=== PATIENT | female | born 1970 ===

== ENCOUNTER 2017-06-15 11:32 | Emergency (ER) | payer OTHER ==
[2017-06-15 11:41] VITALS: BP 96/61; PULSE 78; RESP 16; TEMP 98.7; O2SAT 99
[2017-06-15 12:21] LABS: RBC URINE 25 /hpf (0-3); URINE BILIRUBIN NEGATIVE (NEGATIVE); URINE BLOOD 1+ (NEGATIVE); URINE COLOR Yellow (YELLOW); URINE GLUCOSE (UA) NORMAL (Normal); URINE KETONE NEGATIVE (NEGATIVE); URINE LEUKOCYTE ESTERASE TRACE Leu/uL (Negative); URINE PROTEIN NEGATIVE (NEGATIVE); URINE UROBILINOGEN NORMAL mg/dL (0.2-1.0); WBC URINE 3 /hpf (0-5)
--- NOTE | 2017-06-15 13:00 | C.PDOC ---
History Of Present Illness 47 yr old female presents to the ER with complaints of dysuria for the past 3 days, which is associated with hematuria and urinary frequency. Patient states today she started experiencing intermittent low back pain which prompted visit. Denies fever, chills, nausea, vomiting, abdominal pain, diarrhea, weakness or numbness. Time Seen by Provider: 06/15/17 11:52 Chief Complaint (Nursing): Female Genitourinary History Per: Patient History/Exam Limitations: no limitations Onset/Duration Of Symptoms: Days (3) Current Symptoms Are (Timing): Still Present Past Medical History Reviewed: Historical Data, Nursing Documentation, Vital Signs Vital Signs: Last Vital Signs Temp 98.7 F 06/15/17 11:37 Pulse 78 06/15/17 11:37 Resp 16 06/15/17 11:37 BP 96/61 L 06/15/17 11:37 Pulse Ox 99 06/15/17 13:17 Surgical History: Back Surgery - [facility] Procedures INJECT/INFUSE NEC (03/22/14) Family History: States: Hypertension - Social History Hx Tobacco Use: Yes Hx Alcohol Use: Yes Hx Substance Use: No - Immunization History Hx Tetanus Toxoid Vaccination: No Hx Influenza Vaccination: No Hx Pneumococcal Vaccination: No Review Of Systems Except As Marked, All Systems Reviewed And Found Negative. Constitutional: Negative for: Fever, Chills Gastrointestinal: Negative for: Nausea, Vomiting, Abdominal Pain, Diarrhea Genitourinary: Positive for: Dysuria, Frequency (Urinary), Hematuria Musculoskeletal: Positive for: Back Pain (Low ) Neurological: Negative for: Weakness, Numbness Physical Exam - Physical Exam Appears: Non-toxic, No Acute Distress Skin: Normal Color, Warm, Dry, No Rash Head: Atraumatic, Normacephalic Eye(s): bilateral: Normal Inspection, PERRL, EOMI Oral Mucosa: Moist Neck: Normal, Normal ROM, Supple Chest: Symmetrical, No Tenderness Cardiovascular: Rhythm Regular, No Murmur Respiratory: Normal Breath Sounds, No Rales, No Rhonchi, No Stridor, No Wheezing Gastrointestinal/Abdominal: Normal Exam, Soft, No Tenderness, No Guarding, No Rebound Back: Normal Inspection, No CVA Tenderness Extremity: Normal ROM, No Swelling Neurological/Psych: Oriented x3, Normal Speech, Normal Motor ED Course And Treatment O2 Sat by Pulse Oximetry: 99 (RA) Pulse Ox Interpretation: Normal Medical Decision Making Medical Decision Making: PLAN: * HCG * Urinalysis * Cipro PO * Pyridium PO UA is negative but will treat based on symptoms. Disposition - Disposition Referrals: Terry Shaw DPM [[facility]] - Disposition: HOME/ ROUTINE Disposition Time: 12:57 Condition: GOOD Additional Instructions: Follow up with the medical doctor within 1-2 days. Return if worsened. Prescriptions: Ciprofloxacin [Cipro] 1 tab PO BID #14 tab Ibuprofen [Motrin] 1 tab PO TID PRN #30 tab PRN Reason: Pain Phenazopyridine HCl [Pyridium] 200 mg PO TID #10 tablet Instructions: Urinary Tract Infection in Women (ED) Forms: [facility] (Kazakh), Work Excuse - Clinical Impression Clinical Impression: UTI (urinary tract infection), Dysuria - PA / LAST SCOURER / Resident Statement MD/DO has reviewed & agrees with the documentation as recorded. - Scribe Statement The provider has reviewed the documentation as recorded by the Scribloi Reina All medical record entries made by the Sadafibloi were at my direction and personally dictated by me. I have reviewed the chart and agree that the record accurately reflects my personal performance of the history, physical exam, medical decision making, and the department course for this patient. I have also personally directed, reviewed, and agree with the discharge instructions and disposition.
== END 2017-06-15 13:11 | disposition home or self-care (01) ==
LOC: C.ER 11:32
DX: N39.0 Urinary tract infection, site not specified (principal); R30.0 Dysuria

== ENCOUNTER 2017-06-20 19:24 | Emergency (ER) | payer OTHER ==
[2017-06-20 19:47] VITALS: TEMP 98.7
[2017-06-20] MEDS ORDERED: Lidocaine 5% Patch TD STA (20:04)
[2017-06-20 20:13] LABS: RBC URINE 11 /hpf (0-3); URINE BILIRUBIN NEGATIVE (NEGATIVE); URINE BLOOD 1+ (NEGATIVE); URINE COLOR Yellow (YELLOW); URINE GLUCOSE (UA) NORMAL (Normal); URINE KETONE NEGATIVE (NEGATIVE); URINE LEUKOCYTE ESTERASE NEG Leu/uL (Negative); URINE PROTEIN NEGATIVE (NEGATIVE); URINE UROBILINOGEN NORMAL mg/dL (0.2-1.0); WBC URINE 1 /hpf (0-5)
[2017-06-20] MEDS ORDERED: Lidocaine 5% Patch TD ONE (20:20)
--- NOTE | 2017-06-20 20:36 | C.PDOC ---
History Of Present Illness 47 year old female presents to the ED with complaints of low back pain worse on the left side which radiates down the buttocks, thigh and down the leg. She states she has been having pain for few days, worsened yesterday at work when lifting heavy box. She states she was seen recently in the ED for UTI which she was given antibiotics and reports dysuria has resolved. Denies fever, numbness, weakness, incontinence. Time Seen by Provider: 06/20/17 19:59 Chief Complaint (Nursing): Back Pain History Per: Patient History/Exam Limitations: no limitations Onset/Duration Of Symptoms: Days Current Symptoms Are (Timing): Still Present Quality Of Discomfort: "Pain" Severity: Mild Associated Symptoms: denies: Incontinence, New Weakness, New Numbness Additional History Per: Patient Past Medical History Reviewed: Historical Data, Nursing Documentation, Vital Signs Vital Signs: Last Vital Signs Temp 98.7 F 06/20/17 19:44 Pulse 69 06/20/17 19:44 Resp 22 06/20/17 19:44 BP 98/71 L 06/20/17 19:44 Pulse Ox 97 06/20/17 20:41 Surgical History: Back Surgery - [facility] Procedures INJECT/INFUSE NEC (03/22/14) Family History: States: Unknown Family Hx, Hypertension - Social History Hx Tobacco Use: Yes Hx Alcohol Use: Yes Hx Substance Use: No - Immunization History Hx Tetanus Toxoid Vaccination: No Hx Influenza Vaccination: No Hx Pneumococcal Vaccination: No Review Of Systems Constitutional: Negative for: Fever Genitourinary: Negative for: Incontinence (Bowel or urine) Musculoskeletal: Positive for: Back Pain (Lower, worse left side), Leg Pain ( Buttocks, left thigh and leg. Radiation.) Neurological: Negative for: Weakness, Numbness Physical Exam - Physical Exam Appears: Non-toxic, No Acute Distress Skin: Warm, Dry, No Rash Head: Atraumatic, Normacephalic Eye(s): bilateral: Normal Inspection Neck: Normal ROM Chest: Symmetrical Cardiovascular: Rhythm Regular, No Murmur Respiratory: Normal Breath Sounds, No Rales, No Rhonchi, No Wheezing Gastrointestinal/Abdominal: Bowel Sounds (Active), Soft, No Tenderness, No Guarding Back: Normal Inspection (no erythema, no swelling), No CVA Tenderness, No Decreased ROM, Paraspinal Tenderness (lumbosacral greater on the left side) Extremity: Bilateral: Atraumatic, Normal Color And Temperature, Normal ROM Neurological/Psych: Oriented x3, Normal Speech Gait: Steady ED Course And Treatment O2 Sat by Pulse Oximetry: 97 (RA) Pulse Ox Interpretation: Normal Medical Decision Making Medical Decision Making: Impression: low back pain Plan: * UA * Toradol * Lidoderm * Valium Progress: UA shows trace blood, no WBCs or acute changes from last visit On re-eval patient reports pain is improving. She is asking for work note for light duty. She feels comfortable with discharge. She is ambulating without signs of discomfort. Disposition Counseled Patient/Family Regarding: Diagnosis, Need For Followup, Rx Given - Disposition Referrals: Michelle Shaw MD [Non-Staff] - Disposition: HOME/ ROUTINE Disposition Time: 20:33 Condition: IMPROVED Additional Instructions: Please take Motrin as needed for pain every 6 hours, with food to not upset stomach. Take Flexeril which is muscle relaxant, every 8 hours as needed; caution can make you drowsy. Follow up with orthopedic if pain persists over one week. Prescriptions: Cyclobenzaprine [Cyclobenzaprine HCl] 10 mg PO TID #21 tab Instructions: Acute Low Back Pain (DC) Forms: [facility] (Burmese), Work Excuse - POA Present On Arrival: None - Clinical Impression Clinical Impression: Low back pain - Scribe Statement The provider has reviewed the documentation as recorded by the Scribe Meka tran All medical record entries made by the Scribe were at my direction and personally dictated by me. I have reviewed the chart and agree that the record accurately reflects my personal performance of the history, physical exam, medical decision making, and the department course for this patient. I have also personally directed, reviewed, and agree with the discharge instructions and disposition.
[2017-06-20 20:49] VITALS: BP 101/68; PULSE 84; RESP 16
[2017-06-20 20:50] VITALS: O2SAT 97
== END 2017-06-20 20:48 | disposition home or self-care (01) ==
LOC: C.ER 19:24
DX: M54.5 Low back pain (principal)
CPT/HCPCS: 81001; 84703; 96372; 99283; J1885

== ENCOUNTER 2017-09-02 09:28 | Emergency (ER) | payer OTHER ==
[2017-09-02 09:40] VITALS: BP 110/78; PULSE 83; RESP 20; TEMP 98; O2SAT 99
--- NOTE | 2017-09-02 09:55 | C.PDOC ---
History Of Present Illness 47 yo female with cough, congestion, body aches for 1 week. Cough is productive of green sputum. Chills but no fever. Tolerating oral intake. Time Seen by Provider: 09/02/17 09:46 Chief Complaint (Nursing): Cough, Cold, Congestion History Per: Patient Onset/Duration Of Symptoms: Days Current Symptoms Are (Timing): Still Present Location Of Pain: Diffuse Myalgias Associated Symptoms: Chills, Cough, Sputum, Myalgias. denies: Fever, Sore Throat, Vomiting Past Medical History Vital Signs: Last Vital Signs Temp 98 F 09/02/17 09:36 Pulse 83 09/02/17 09:36 Resp 20 09/02/17 09:36 BP 110/78 09/02/17 09:36 Pulse Ox 99 09/02/17 09:56 - Medical History PMH: No Chronic Diseases Surgical History: Back Surgery - [facility] Procedures INJECT/INFUSE NEC (03/22/14) Family History: States: Unknown Family Hx, Hypertension - Social History Hx Tobacco Use: Yes Hx Alcohol Use: No Hx Substance Use: No - Immunization History Hx Tetanus Toxoid Vaccination: No Hx Influenza Vaccination: No Hx Pneumococcal Vaccination: No Review Of Systems Constitutional: Positive for: Chills, Malaise. Negative for: Fever ENT: Negative for: Nose Congestion, Throat Pain Cardiovascular: Negative for: Chest Pain Respiratory: Positive for: Cough, Pleuritic Pain, Sputum. Negative for: Shortness of Breath, Wheezing Gastrointestinal: Negative for: Nausea, Vomiting, Abdominal Pain Musculoskeletal: Positive for: Back Pain Skin: Negative for: Rash Neurological: Negative for: Weakness Physical Exam - Physical Exam Appears: Well, Non-toxic Skin: Normal Color Oral Mucosa: Moist Tongue: Normal Appearing Throat: Normal, No Erythema, No Exudate Neck: Normal, Normal ROM, No Paracervical Tenderness Lymphatic: Normal Exam Chest: Symmetrical Respiratory: Normal Breath Sounds, Decreased Breath Sounds, No Wheezing Gastrointestinal/Abdominal: Normal Exam Extremity: Normal ROM Gait: Steady ED Course And Treatment O2 Sat by Pulse Oximetry: 99 Disposition Doctor Will See Patient In The: Office Counseled Patient/Family Regarding: Diagnosis - Disposition Disposition: HOME/ ROUTINE Disposition Time: 10:00 Condition: STABLE Prescriptions: Azithromycin [Zithromax] 250 mg PO DAILY #6 tab Promethazine DM [Phenergan DM Syrup] 5 ml PO TID PRN 7 Days #120 cup PRN Reason: Cough Instructions: Upper Respiratory Infection (ED) Forms: [facility] (German), Work Excuse - Clinical Impression Clinical Impression: Upper respiratory infection
== END 2017-09-02 09:56 | disposition home or self-care (01) ==
LOC: C.ER 09:28
DX: J06.9 Acute upper respiratory infection, unspecified (principal)

== ENCOUNTER 2018-09-18 10:14 | Emergency (ER) | payer SELFPAY ==
[2018-09-18 10:19] VITALS: BP 107/82; PULSE 78; RESP 18; TEMP 98.4; O2SAT 98
--- NOTE | 2018-09-18 10:34 | C.PDOC ---
History Of Present Illness CC: Left lower back pain Patient is a 48 year old female with no known past medical history, who presents to the ED with complaints of left lower back pain that started 3 days ago. Patient describes that pain as stiffness that is worse in the morning with mild relief with activities. 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 Patient denies any recent trauma/Injury or fall, urinary/fecal incontinence or b/l LE numbness and tingling or urinary symptoms <Carlos Bone E - Last Filed: 09/18/18 12:46> <Carlos Bone E - Last Filed: 09/18/18 12:46> <Art Jesus M - Last Filed: 09/19/18 15:42> Time Seen by Provider: 09/18/18 10:27 Chief Complaint (Nursing): Back Pain Past Medical History Vital Signs: Last Vital Signs Temp 98.4 F 09/18/18 10:16 Pulse 78 09/18/18 10:16 Resp 18 09/18/18 10:16 BP 107/82 09/18/18 10:16 Pulse Ox 98 09/18/18 10:16 Surgical History: Back Surgery - [facility] Procedures INJECT/INFUSE NEC (03/22/14) Family History: States: Unknown Family Hx, Hypertension - Social History Hx Tobacco Use: Yes Hx Alcohol Use: Yes Hx Substance Use: No - Immunization History Hx Tetanus Toxoid Vaccination: No Hx Influenza Vaccination: No Hx Pneumococcal Vaccination: No <Carlos Bone E - Last Filed: 09/18/18 12:46> Vital Signs: Last Vital Signs Temp 98.4 F 09/18/18 10:16 Pulse 78 09/18/18 10:16 Resp 18 09/18/18 10:16 BP 107/82 09/18/18 10:16 Pulse Ox 98 09/18/18 11:49 - [facility] Procedures INJECT/INFUSE NEC (03/22/14) <Art Jesus - Last Filed: 09/19/18 15:42> Review Of Systems Constitutional: Negative for: Fever, Chills, Weakness, Malaise Respiratory: Negative for: Cough, Shortness of Breath Gastrointestinal: Negative for: Nausea, Vomiting, Abdominal Pain, Constipation Genitourinary: Negative for: Dysuria, Frequency, Hematuria, Vaginal Discharge Musculoskeletal: Positive for: Back Pain Skin: Negative for: Rash, Lesions Neurological: Negative for: Weakness, Numbness, Incoordination <Sylvia Bonesalvador Cayetano - Last Filed: 09/18/18 12:46> Physical Exam - Physical Exam Appears: Well Skin: Normal Color Head: Atraumatic, Tenderness Eye(s): bilateral: Normal Inspection, EOMI Neck: Normal, Normal ROM Cardiovascular: Rhythm Regular Respiratory: Normal Breath Sounds, No Decreased Breath Sounds, No Accessory Muscle Use Gastrointestinal/Abdominal: Normal Exam, Bowel Sounds, Soft Back: No Decreased ROM, Muscle Spasm, No Straight Leg Raising (Exacerbated in flexion, extension, right and left rotation; relief with lower muscle energy OMT ) Extremity: Normal ROM, No Tenderness, No Calf Tenderness, No Swelling Extremity: Bilateral: Atraumatic <Sylvia Bonesalvador Cayetano - Last Filed: 09/18/18 12:46> - Physical Exam Back: Paraspinal Tenderness (no midline tenderness, parathoracic and paralumbar region ) <Art Jesus - Last Filed: 09/19/18 15:42> ED Course And Treatment O2 Sat by Pulse Oximetry: 98 <Lizandro,Sylviasalvador Cayetano - Last Filed: 09/18/18 12:46> Disposition Discussed With : Atr Jesus - Disposition Disposition Time: 11:32 <Carlos Bone - Last Filed: 09/18/18 12:46> <Art Jesus - Last Filed: 09/19/18 15:42> - Disposition Referrals: Tonie Pyle MD [Medical Doctor] - Disposition: HOME/ ROUTINE Condition: GOOD Additional Instructions: Please take the following: - Naproxen 500mg PO Q12H prn for pain. Please take with food or milk - Flexeril 5mg PO once at bedtime. Please do not take while driving or during active activities or operating machinery - Apply lidoderm path Q24H to affected area Please apply heating pad or icyhot patch if needed Please continue with back exercise stretches Please follow up with your primary care physician within 2 days or if you do not have a PCP, Please follow up with [facility] in order to establish primary care and follow up Please return if symptoms resumes or persists Please take care Prescriptions: Cyclobenzaprine [Flexeril] 5 mg PO HS PRN #10 tab PRN Reason: Muscle Spasm Lidocaine 5% [Lidoderm] 1 ea TD Q24H #7 patch RX: Naproxen 500 mg PO Q12H PRN #15 ect PRN Reason: Pain, Moderate (4-7) Instructions: Low Back Pain (DC), Muscle Strain (DC), Back Exercises, Lumbar Muscle Strain (DC) Forms: [facility] (Polish), Work Excuse - Clinical Impression Clinical Impression: Low back strain, Lumbar sprain, Back pain
== END 2018-09-18 11:51 | disposition home or self-care (01) ==
LOC: C.ER 10:14
DX: S39.012A Strain of muscle, fascia and tendon of lower back, initial encounter (principal); S33.5XXA Sprain of ligaments of lumbar spine, initial encounter; X50.0XXA Overexertion from strenuous movement or load, initial encounter
CPT/HCPCS: 96374; 99283; J1885